=== PATIENT | male | born 1980 | race Caucasian/White ===

== ENCOUNTER 2021-04-18 11:43 | Outpatient (CLI) | payer BC ==
--- NOTE | 2021-04-18 16:22 | XRAY Report ---
PROCEDURE: Cervical Spine 2 View INDICATIONS: CERVICAL RADICULOPATHY TECHNIQUE: 3 view(s) of the cervical spine were acquired. COMPARISON: None. FINDINGS: Bones: No fractures or dislocations to the T1 level. The lateral masses of C1 appear intact on the odontoid view. No suspicious bony lesions. Mild C3-C4, C4-C5, C5-C6 and C6-C7 degenerative disc dise ase. Mild bilateral C4-C5, C5-C6 and C6-C7 uncovertebral hypertrophy. Soft tissues: No prevertebral soft tissue swelling. IMPRESSION: 1. Multilevel degenerative disc disease. 2. Multilevel uncovertebral arthropathy. 3. No fracture. No acute osseous lesion. If there is continued clinical concern for pathology, then M RI should be considered for further evaluation. Reviewed by: Nicole Bean MD, PhD on 04/18/2021 4:21 PM PST Approved by: Nicole Bean MD, PhD on 04/18/2021 4:21 PM PST Station ID: [id number]
--- NOTE | 2021-04-18 17:19 | XRAY Report ---
PROCEDURE: Shoulder 3 View LT INDICATIONS: LEFT SHOULDER PAIN TECHNIQUE: 3 views of the shoulder were acquired. COMPARISON: None. FINDINGS: Bones: No fractures or dislocations. No suspicious bony lesions. Visualized ribs appear intact. Soft tissues: No suspicious soft tissue calcifications. IMPRESSION: Normal examination. Reviewed by: Nicole Bean MD, PhD on 04/18/2021 5:18 PM PST Approved by: Nicole Bean MD, PhD on 04/18/2021 5:18 PM PST Station ID: [id number]
== END 2021-04-18 23:59 | disposition home or self-care (01) ==
LOC: DI.S 11:43
PROVIDERS: ATTEND Registered Nurse
DX: M25.512 Pain in left shoulder (principal); M50.31 Other cervical disc degeneration, high cervical region; M47.812 Spondylosis without myelopathy or radiculopathy, cervical region